=== PATIENT | female | born 1985 | race Caucasian/White ===

== ENCOUNTER 2025-03-14 18:30 | Emergency (ER) | payer MEDICARE, MEDICAID, SELFPAY ==
[2025-03-14 18:46] VITALS: BP 113/76; PULSE 77; RESP 20; TEMP 36.5; O2SAT 96; BMI 27.4
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
[2025-03-14] MEDS: HYDROcodone/APAP 5/325 TABLET 1 TAB PO (19:28)
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
[2025-03-14] MEDS: DIPHTH,PERTUSS(ACELL),TET VAC 0.5 ML SYR- ADULT IMi (20:04)
== END 2025-03-14 20:11 | disposition home or self-care (01) ==
LOC: SERX 20:14
PROVIDERS: Emergency Provider Emergency Medicine
DX: S61.211A Laceration without foreign body of left index finger without damage to nail, initial encounter (principal); S61.213A Laceration without foreign body of left middle finger without damage to nail, initial encounter; V18.0XXA Pedal cycle driver injured in noncollision transport accident in nontraffic accident, initial encounter; S80.211A Abrasion, right knee, initial encounter; Z23 Encounter for immunization
CPT/HCPCS: 12002; 73120; 73562; 90471; 90715; 99283; A9270